=== PATIENT | female | born 1960 | race African-American/Black ===

== ENCOUNTER 2019-01-28 08:17 | Inpatient (IN) | payer OTHER ==
--- NOTE | 2019-01-28 11:08 | MRI ---
MRI BRAIN WITHOUT CONTRAST: Date: 01/28/19 HISTORY: Left arm weakness, left upper extremity numbness. FINDINGS: Correlation is made with the CT scan from earlier today. There is a small, focal area of restricted diffusion in the right lr radiata consistent with acut e lacunar infarction. No transcortical infarct, hemorrhage, midline shift, or abnormal extra-axial fl uid collections are seen. The ventricular size is appropriate and the basilar cisterns are patent. Pa tchy areas of increased T2 signal in the periventricular white matter are consistent with chronic sma ll vessel ischemic disease. There is mild mucosal disease in the left ethmoid air cells. IMPRESSION: Acute lacunar infarction in the right coronal radiata. POS: OFF
[2019-01-28] MEDS ORDERED: hydrALAZINE 20 MG/ML VIAL SLOW IVP PRN ×2 (12:57→13:03)
[2019-01-28] MEDS ORDERED: Acetaminophen 325 MG TAB PO PRN (12:57)
[2019-01-28] MEDS ORDERED: Ondansetron ODT 4 MG TAB PO PRN (12:57)
[2019-01-28] MEDS ORDERED: Ondansetron PF 4 MG/2 ML Vial IVP PRN (12:57)
[2019-01-28] MEDS ORDERED: Sodium Chloride 0.9% 1,000 ML IV SCH ×2 (13:00)
[2019-01-28] MEDS ORDERED: Insulin Regular 300 UNITS/3 ML VIAL SC PRN ×2 (13:02)
[2019-01-28] MEDS ORDERED: Dextrose 50% Abboject 50 ML SYRINGE SLOW IVP PRN (13:02)
[2019-01-28] MEDS ORDERED: Dextrose 5% in Water 1,000 ML IV PRN (13:02)
[2019-01-28] MEDS ORDERED: Labetalol HCl 100 MG/20 ML VIAL SLOW IVP PRN (13:03)
[2019-01-28 14:35] VITALS: BMI 26.4
[2019-01-28] MEDS ORDERED: Amlodipine 5 MG TAB PO SCH (16:30)
--- NOTE | 2019-01-28 16:34 | ULT ---
STANDARD CAROTID DOPPLER ULTRASOUND: HISTORY: CVA. Acute infarction. COMPARISON: None. TECHNIQUE: Real-time, stuart-scale, color Doppler, and spectral analysis of the extracranial carotid and vertebral arteries is performed. FINDINGS: No elevated peak systolic velocities within the internal carotid arteries. Antegrade flow in both ve rtebral arteries. The right ICA/CCA ratio is 0.63, and the left ICA/CCA ratio is 1.09. IMPRESSION: No hemodynamically significant stenosis. POS: NORMA
[2019-01-28] MEDS: metFORMIN 500 MG TAB PO SCH (17:58)
[2019-01-28] MEDS: Amlodipine 5 MG TAB PO SCH (17:58)
--- NOTE | 2019-01-28 18:45 | HP ---
PRIMARY CARE PHYSICIAN: Dr. Umm Edmond. CHIEF COMPLAINT: Left-sided weakness of 2 days duration. HISTORY OF PRESENT ILLNESS: The patient is a 58-year-old female with hypertension, diabetes mellitus type 2 with ongoing tobacco abuse, presented to the emergency room at [facility] with left-sided weakness over the last 2 to 3 days. The weakness was progressively getting worse, for which she presented to the emergency room. She denies any sensory deficits. No double vision, blurring of vision, facial asymmetry, weakness, numbness of any of her extremities reported. She denies any headache or seizures. No similar episodes in the past. She takes 81 mg aspirin on a daily basis. Her NIH score in the ER was 0. PAST MEDICAL HISTORY: 1. Hypertension. 2. Diabetes mellitus type 2. 3. Hyperlipidemia. 4. Ongoing tobacco abuse. PAST SURGICAL HISTORY: 1. section x2. 2. Partial hysterectomy. ALLERGIES: NO KNOWN DRUG ALLERGIES. CURRENT HOME MEDICATIONS: 1. Amlodipine 10 mg daily. 2. Aspirin 81 mg daily. 3. Glyburide 10 mg b.i.d. 4. Lovastatin 10 mg daily. 5. Metformin 1000 mg b.i.d. 6. Triamterene-HCTZ 37.5/25 daily. SOCIAL HISTORY: The patient smokes up to half pack a day. She also abuses cannabis. She denies any other drug use. She drinks alcohol socially. FAMILY HISTORY: Negative for premature coronary artery disease. REVIEW OF SYSTEMS: All other review of systems reviewed and were found negative. PHYSICAL EXAMINATION: VITAL SIGNS: Temperature 98.7, respirations 18, pulse rate of 110, blood pressure 165/88, with O2 saturation 100% on room air. GENERAL: A 58-year-old female in no apparent distress. HEENT: Head is atraumatic and normocephalic. Sclerae anicteric. Moist mucous membranes. No oral lesion. NECK: Supple. No JVD appreciated. No carotid bruit. LUNGS: Clear to auscultation bilaterally. No wheezing, rales, or rhonchi. HEART: S1 and S2 present. Regular rate and rhythm. No rubs or gallops appreciated. ABDOMEN: Soft and nontender. Bowel sounds present. EXTREMITIES: No edema or calf tenderness. NEUROLOGIC: Cranial nerves 2 through 12 are normal on examination. Power was 5 /5 in the right upper and right lower extremity. There was weakness of the left upper extremity distal to the left forearm. The strength in this area was approximately 4/5. No sensory deficit noted. PSYCHIATRY: The patient is alert, awake, and oriented x3. SKIN: Warm and dry. LYMPH NODES: No palpable lymph nodes in the neck. PERIPHERAL VASCULAR: Radial pulses palpable bilaterally. MUSCULOSKELETAL: No joint swelling or tenderness. LABORATORY FINDINGS: WBC 7.9 with hemoglobin 13.8, platelet 389. PT, INR, PTT normal range. Troponin negative. Sodium 137, potassium 3.5, chloride 99, bicarb 27, BUN 13, and creatinine 0.74. DIAGNOSTIC DATA: CT scan of the brain noncontrast in the emergency room was negative, which showed chronic white matter changes. Chest x-ray by my review was negative for infiltrate. MRI of the brain by my review showed acute lacunar infarction in the right lr radiata. EKG by my review showed sinus rhythm. IMPRESSION: 1. Acute lacunar infarction in the right lr radiata. 2. Ongoing tobacco abuse. 3. Hypertension. 4. Hyperlipidemia. Recent fasting lipid profile from November of 2018 showed LDL of 79, HDL 43, cholesterol of 136 with triglycerides of 72. 5. Diabetes mellitus type 2. 6. Cannabis abuse. PLAN: The patient will be monitored in the stroke unit. We will consult Physical Therapy and Occupational Therapy. We will increase aspirin to 325 mg daily. We will consult Neurology, Dr. Jade for further recommendation on antiplatelet agent. She recently had a fasting lipid profile. There is probably no need for fasting lipid profile this admission since it was done in November of this year. We will start her on Lipitor 40 mg at bedtime. DVT prophylaxis with SCDs. The patient is currently ambulating in the hallway. Insulin sliding scale. Continue metformin and glyburide. We will resume triamterene-HCTZ and amlodipine at a half dose in a.m. Plan was discussed with the patient in detail. She stated understanding. Job ID: [id number] [facility]
[2019-01-28] MEDS: glyBURIDE 5 MG TAB PO SCH (20:30)
[2019-01-28] MEDS: Famotidine 20 MG TAB PO SCH (20:30)
[2019-01-28] MEDS ORDERED: Atorvastatin Calcium 40 MG TAB PO SCH (21:00)
[2019-01-29] MEDS: metFORMIN 500 MG TAB PO SCH ×2 (08:59→17:58)
[2019-01-29] MEDS ORDERED: Triamterene/Hydrochlorothiazide 37.5 mg/25 mg Tablet PO SCH (09:00)
[2019-01-29] MEDS ORDERED: Enoxaparin Sodium 40 MG/0.4 ML SYRINGE SC SCH (09:00)
[2019-01-29] MEDS ORDERED: Multivit, Therapeutic 1 TAB PO SCH (09:00)
[2019-01-29] MEDS ORDERED: Cyanocobalamin (Vitamin B-12) 1,000 MCG TAB PO SCH (09:00)
[2019-01-29] MEDS ORDERED: Aspirin 325 mg Enteric Coated Tablet PO SCH (09:00)
[2019-01-29] MEDS: glyBURIDE 5 MG TAB PO SCH (09:00)
[2019-01-29] MEDS: Amlodipine 5 MG TAB PO SCH (09:02)
[2019-01-29] MEDS: Famotidine 20 MG TAB PO SCH (09:04)
[2019-01-29 11:42] VITALS: TEMP 98.7
--- NOTE | 2019-01-29 14:51 | PDOC.PN ---
- Subjective Encounter Start Date: 01/29/19 Encounter Start Time: 11:00 Patient seen and examined for Acute CVA. No new focal deficits. No new complaints. No overnight events - Objective Resuscitation Status - Order Detail: 01/28/19 12:57 Resuscitation Status Routine Resuscitation Status: FULL: Full Resuscitation MAR Reviewed: Yes Vital Signs & Weight: Vital Signs (12 hours) Temp Pulse Pulse Pulse Resp BP BP 01/29/19 11:42 78 78 168/85 H 183/81 H 01/29/19 11:41 98.7 F 85 18 01/29/19 09:02 89 01/29/19 08:25 86 133/75 01/29/19 08:20 01/29/19 07:35 98.9 F 82 18 01/29/19 04:00 97.9 F 87 16 BP Pulse Ox 01/29/19 11:42 01/29/19 11:41 135/75 97 01/29/19 09:02 01/29/19 08:25 01/29/19 08:20 98 01/29/19 07:35 133/75 98 01/29/19 04:00 130/60 100 Weight Weight 149 lb 9.6 oz I&O: 01/28/19 01/29/19 01/30/19 06:59 06:59 06:59 Intake Total 240 Balance 240 Additional Labs: Accuchecks 01/29/19 01/29/19 01/28/19 10:38 06:02 20:37 POC Glucose 279 H 167 H 125 H Laboratory Tests 06/25/18 12/16/18 12/16/18 07:55 07:16 07:16 Hemoglobin A1c 8.7 H Triglycerides 72 Cholesterol 136 LDL Cholesterol, Calc 79 HDL Cholesterol 43 Vitamin B12 346 Folate 11.20 EKG Reviewed by me: Yes (Tele SR) Phys Exam - Physical Examination Constitutional: NAD Respiratory: no wheezing, no rhonchi Cardiovascular: RRR, no rub Gastrointestinal: soft, non-tender, positive bowel sounds Musculoskeletal: no edema Neurological: moves all 4 limbs no new focal deficits. Dx/Plan - Plan DVT proph w/SCDs 1. Acute lacunar infarction in the right lr radiata. 2. Ongoing tobacco abuse. counselled. 3. Hypertension. 4. Hyperlipidemia. 5. Diabetes mellitus type 2. 6. Cannabis abuse. PLAN: Cont ASA 325 mg daily Await Neuro input Increase Amlodidpine to 10 mg daily Cont Statins Cont other meds as below Stroke team Review of Systems - Review of Systems Respiratory: negative: Cough, Dry, Shortness of Breath, Hemoptysis, SOB with Excertion, Pleuritic Pain, Sputum, Wheezing Cardiovascular: negative: chest pain, palpitations, orthopnea, paroxysmal nocturnal dyspnea, edema, light headedness, other - Medications/Allergies Allergies/Adverse Reactions: Allergies Allergy/AdvReac Type Severity Reaction Status Date / Time No Known Allergies Allergy Unverified 01/28/19 14:46 Medications: Current Medications Acetaminophen (Tylenol) 650 mg PO Q4H PRN PRN Reason: Headache/Fever/Mild Pain (1-3) Amlodipine Besylate (Norvasc) 5 mg PO BID [facility] Aspirin (Ecotrin) 325 mg PO DAILY [facility] Last Admin: 01/29/19 09:00 Dose: 325 mg Atorvastatin Calcium (Lipitor) 40 mg PO HS [facility] Last Admin: 01/28/19 20:30 Dose: 40 mg Cyanocobalamin (Vitamin B-12) 1,000 mcg PO DAILY [facility] Last Admin: 01/29/19 09:00 Dose: 1,000 mcg Dextrose/Water (Dextrose 50%) 25 gm SLOW IVP PRN PRN PRN Reason: Hypoglycemia Enoxaparin Sodium (Lovenox) 40 mg SC 2100 [facility] Famotidine (Pepcid) 20 mg PO BID [facility] Last Admin: 01/29/19 09:04 Dose: 20 mg Glucagon (Glucagon) 1 mg IM PRN PRN PRN Reason: Hypoglycemia Glyburide (Diabeta) 10 mg PO BID [facility] Last Admin: 01/29/19 09:00 Dose: 10 mg Hydralazine HCl (Apresoline) 10 mg SLOW IVP Q4H PRN PRN Reason: BP > 220/110 Dextrose/Water (D5w) 1,000 mls @ 0 mls/hr IV .Q0M PRN PRN Reason: Hypoglycemia Insulin Human Regular (Humulin R) 0 units SC .MILD SLIDING SCALE PRN PRN Reason: Mild Correctional Scale Last Admin: 01/29/19 12:16 Dose: 4 unit Insulin Human Regular (Humulin R) 0 units SC .BEDTIME SLIDING SC PRN PRN Reason: Bedtime Correctional Scale Labetalol HCl (Normodyne) 10 mg SLOW IVP Q4H PRN PRN Reason: Systolic BP > 180 Metformin HCl (Glucophage) 1,000 mg PO BID-WM [facility] Last Admin: 01/29/19 08:59 Dose: 1,000 mg Multivitamins (Theragran) 1 tab PO DAILY [facility] Last Admin: 01/29/19 09:00 Dose: 1 tab Ondansetron HCl (Zofran Odt) 4 mg PO Q6H PRN PRN Reason: Nausea/Vomiting Ondansetron HCl (Zofran) 4 mg IVP Q6H PRN PRN Reason: Nausea/Vomiting Sodium Chloride (Flush - Normal Saline) 10 ml IVF PRN PRN PRN Reason: Saline Flush Last Admin: 01/29/19 09:05 Dose: 10 ml Sodium Chloride (Flush - Normal Saline) 10 ml IVF PRN PRN PRN Reason: Saline Flush Triamterene/HCTZ (Maxzide-25) 1 tab PO QAM [facility] Last Admin: 01/29/19 09:04 Dose: 1 tab
[2019-01-29 16:07] VITALS: BP 130/83
[2019-01-29] MEDS ORDERED: Amlodipine 5 MG TAB PO SCH (21:00)
--- NOTE | 2019-01-29 22:50 | DIS ---
DATE OF ADMISSION: 01/28/2019 DATE OF DISCHARGE: 01/29/2019 DISCHARGE DISPOSITION: Home. FOLLOWUP: 1. Follow up with primary care physician, Dr. Umm Edmond in 1 week. 2. Follow up with Dr. Jade in 2 weeks. ALLERGIES: NO KNOWN DRUG ALLERGIES. THE PATIENT WAS SEEN AND EXAMINED ON THE DAY OF DISCHARGE. DENIES ANY NEW COMPLAINTS. NO NEW FOCAL DEFICIT. BRIEF HOSPITAL COURSE: The patient is a 58-year-old female with ongoing tobacco abuse, hypertension, diabetes mellitus type 2, and hyperlipidemia, presented to the hospital on 01/28/2019, with left-sided weakness of 2 days duration. She currently takes 81 mg aspirin on a daily basis. Her workup in the emergency room was consistent with acute lacunar infarction in the right lr radiata. She was seen by Physical Therapy, Occupational Therapy, Speech Therapy along with neurologist. Echocardiogram showed left ventricular ejection fraction of 50% to 55%, with diastolic dysfunction. Carotid Doppler was negative for hemodynamically significant stenosis. Per Neurology recommendation, the patient will be started on Plavix. Lifestyle modification including tobacco cessation was emphasized. She underwent recent fasting lipid profile that showed triglycerides of 72, cholesterol 136, LDL 79, HDL of 43. Recent A1c was 8.7. The patient will require Plavix for approximately 6 months per workable report by Neurology. Official dictation by Neurology is pending at this time. She was advised to follow up with Neurology as outpatient for further recommendations. FINAL DIAGNOSES: 1. Acute lacunar infarction in the right lr radiata. 2. Ongoing tobacco abuse. 3. Hypertension. 4. Hyperlipidemia. 5. Diabetes mellitus type 2. 6. Cannabis abuse. The patient was counseled. PLAN: Plan was discussed with the patient in detail, she stated understanding. Job ID: [id number]
--- NOTE | 2019-01-29 23:02 | CON ---
DATE OF CONSULTATION: 01/29/2019 CONSULTING PHYSICIAN: Hospitalist Services. IMPRESSION: 1. Lacunar stroke secondary to underlying risk factors. 2. Aspirin failure. PLAN: 1. Add Plavix 75 mg per day for the next 6 months. 2. Continue aspirin and a statin. HISTORY OF PRESENT ILLNESS: Ms. Jolly is a 58-year-old black female with a history of hypertension, diabetes, hyperlipidemia, and tobacco use. She presented with left-sided weakness. Her MRI showed evidence of a right lr radiata lacunar infarction. Her carotid Doppler does not show any stenosis. She has no cardiac history. Her symptoms have improved a bit. She denies any slurred speech or difficulty swallowing. She has not had any trouble walking. PAST MEDICAL HISTORY: As listed above. ALLERGIES: NONE REPORTED. SOCIAL HISTORY: Positive tobacco and marijuana use. No illicit drug use. FAMILY HISTORY: Noncontributory. MEDICATIONS: Medication list was reviewed. REVIEW OF SYSTEMS: 10-system review of systems otherwise unremarkable. PHYSICAL EXAMINATION: GENERAL: She is a well-nourished, middle-aged woman, in no distress. VITAL SIGNS: Have been stable. She is afebrile. HEENT: Within normal limits. NECK: Supple. EXTREMITIES: No cyanosis. NEUROLOGIC: She is alert and cooperative. Her speech is fluent and clear. Cranial nerves 2 through 12 are intact. Motor exam shows some mildly diminished hand hourly manager on the left. She had a little bit of clumsiness to the movements of the left hand as well. She could walk independently. Sensation was intact. No tremor or dysmetria is present. LABORATORY STUDIES: Unremarkable CBC and serum chemistries with a blood glucose of 159. SUMMARY: This is a middle-aged woman with risk factors for small vessel disease. She has suffered a lacunar infarction of mild severity and she has been compliant with her aspirin. We will go ahead and add Plavix and will be happy to follow up with her as an outpatient. Job ID: [id number]
[2019-01-30] MEDS ORDERED: Enoxaparin Sodium 40 MG/0.4 ML SYRINGE SC SCH (21:00)
== END 2019-01-29 18:22 | disposition home or self-care (01) | DRG 65 ==
LOC: ERS 08:17 → ERHOLD 11:52 → 2SE 14:24
PROVIDERS: ADMIT Internal Medicine; ATTEND Internal Medicine
DX: I63.81 Other cerebral infarction due to occlusion or stenosis of small artery (principal); G81.94 Hemiplegia, unspecified affecting left nondominant side; I10 Essential (primary) hypertension; E11.9 Type 2 diabetes mellitus without complications; E78.5 Hyperlipidemia, unspecified; R29.700 NIHSS score 0; F17.210 Nicotine dependence, cigarettes, uncomplicated; F12.10 Cannabis abuse, uncomplicated; Z90.711 Acquired absence of uterus with remaining cervical stump; Z98.890 Other specified postprocedural states; Z79.82 Long term (current) use of aspirin; Z79.84 Long term (current) use of oral hypoglycemic drugs; Z71.6 Tobacco abuse counseling; Z71.51 Drug abuse counseling and surveillance of drug abuser
CPT/HCPCS: 36416; 70551; 93306; 93880; J1815

== ENCOUNTER 2023-08-05 08:16 | Outpatient (CLI) | payer OTHER | END 2023-08-05 08:17 | disposition home or self-care (01) | LOC: ULT 08:16 | PROVIDERS: ATTEND Psychiatry & Neurology Neurology | DX: I63.9 Cerebral infarction, unspecified (principal); R93.89 Abnormal findings on diagnostic imaging of other specified body structures | CPT/HCPCS: 93880 ==